=== PATIENT | male | born 1985 | race Caucasian/White ===

== ENCOUNTER → 2022-02-23 15:24 | Outpatient (BNVA) | payer MEDICAID, SELFPAY | PROVIDERS: Visit Provider Specialist | DX: M23.42 Loose body in knee, left knee (principal) | CPT/HCPCS: 73560; 73565; 99203; 99204 ==

== ENCOUNTER 2022-04-10 07:03 | Outpatient (CLI) | payer MEDICAID, SELFPAY ==
--- NOTE | 2022-04-10 07:15 | MR_ITS ---
WS: [id number] MRI LEFT KNEE NONCONTRAST TECHNIQUE: Axial PD, coronal PD fat sat, coronal PD, sagittal PD, and sagittal PD fat-sat images obta ined. CLINICAL INFORMATION: loose bodies present in xray/slightly positive Sri's COMPARISON: None. FINDINGS: Distal quadriceps and patella tendons are intact. Small suprapatellar effusion with suprapatellar oss ified loose bodies. ACL is not visualized likely chronically torn. Normal PCL. Chronic thinning of th e medial and lateral meniscus. Extrusion of the lateral meniscus. Chronic appearing tear of the anter ior horn lateral meniscus with blunting. Moderate chondromalacia patella. Hypertrophic patella. Medial and lateral patellar retinacula appear intact. Normal popliteal fossa. Normal medial and lateral collateral ligaments. Hypertrophic changes along the joint line. Subchondral cystic change along the tibial plateau. MR/MR knee LT wo con* [id number] IMPRESSION: 1. ACL is not seen likely chronically torn. Normal PCL. 2. 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 3. Peripheral extrusion of the lateral meniscus. Chronic appearing tear of the anterior horn lateral meniscus with blunting. 4. Small suprapatellar effusion with ossified intra-articular loose bodies lar gest measuring 18 mm in the suprapatellar bursa. 5. Small ossified bodies body or osseous fragments along the anterior tibial p lateau at the tibial spine seen on the radiograph measuring 6 mm. 6. Moderate chondromalacia patella. No subchondral edema. 7. Medial and lateral collateral ligaments appear intact. [facility] grading: grade III: partial-thickness cartilage loss with focal ulcer ation
== END 2022-04-10 07:04 | disposition home or self-care (01) ==
LOC: RAD 07:04
PROVIDERS: Visit Provider Specialist
DX: M17.12 Unilateral primary osteoarthritis, left knee (principal); M22.42 Chondromalacia patellae, left knee; S83.282A Other tear of lateral meniscus, current injury, left knee, initial encounter
CPT/HCPCS: 73721